=== PATIENT | male | born 1995 | race African-American/Black ===

== ENCOUNTER 2021-06-14 14:33 | Emergency (ER) | payer OTHER ==
[~2021-06-14] VITALS: Ht 170.2 cm; Wt 65.0 kg
[2021-06-14 14:39] VITALS: BP 162/100
[2021-06-14] MEDS ORDERED: IBUPROFEN 600 MG TABLET. PO ONE (15:30)
--- NOTE | 2021-06-14 15:51 | RAD ---
Exam Date: 06/14/2021 3:30 PM XR SHOULDER_RIGHT 2+ VIEWS Indication: Reason: SHOULDER PAIN / Spl. Instructions: / History: . FINDINGS/ IMPRESSION: No acute fracture or dislocation. Alignment and joint spaces are maintained. The soft tissues are w ithin normal limits. Electronically signed by: Bob Hardy MD (06/14/2021 3:48 PM) [id number]
--- NOTE | 2021-06-14 16:05 | PHYS DOC ---
Past History Past Medical History: No Pertinent History (LESLYE TUBBS APRN) Past Surgical History: No Surgical History (LESLYE TUBBS APRN) Smoking: Non-smoker Alcohol Use: None Drug Use: None (LESLYE TUBBS APRN) General Adult EDM: Chief Complaint: SHOULDER INJURY HPI: HPI: Patient is a 26-year-old male that presents today with right shoulder pain. Patient states that he has had pain over the last 3 days with no injury that he can recall, he states he was seen on post yesterday and was given an injection i nto the joint, and he says that has not helped with the pain he said he is now feeling pain into his hand and he came here for evaluation. Patient also states that he was given a prescription for muscle relaxers and [place]. Patient states he has not been taking any [id number] medications such as ibuprofen or Tylenol, he states he has not been icing or resting this arm. (LESLYE TUBBS APRN) Review of Systems: Review of Systems: Constitutional: Denies fever or chills Eyes: Denies change in visual acuity HENT: Denies nasal congestion or sore throat Respiratory: Denies cough or shortness of breath Cardiovascular: Denies chest pain or edema GI: Denies abdominal pain, nausea, vomiting, bloody stools or diarrhea : Denies dysuria Musculoskeletal: Right shoulder pain Integument: Denies rash Neurologic: Denies headache, focal weakness or sensory changes Endocrine: Denies polyuria or polydipsia Lymphatic: Denies swollen glands Psychiatric: Denies depression or anxiety (LESLYE TUBBS APRN) Current Medications: Current Meds: Current Medications Medications (Trade) Dose Ordered Sig/Ermias Start Time Stop Time Status Last Admin Dose Admin Ibuprofen (Motrin) 600 mg 1X ONCE 06/14/21 15:30 06/14/21 15:31 DC 06/14/21 15:36 600 MG (LESLYE TUBBS APRN) Allergies: Allergies: Allergies Coded Allergies Type Severity Reaction Last Updated Verified No Known Drug Allergies 06/14/21 No (LESLYE TUBBS APRN) Physical Exam: PE: Constitutional: Well developed, well nourished, no acute distress, non-toxic appearance. [] HENT: Normocephalic, atraumatic, bilateral external ears normal, oropharynx moist, no oral exudates, nose normal. [] Eyes: PERRLA, EOMI, conjunctiva normal, no discharge. [] Neck: Normal range of motion, no tenderness, supple, no stridor. [] Cardiovascular:Heart rate regular rhythm, no murmur [] Lungs & Thorax: Bilateral breath sounds clear to auscultation [] Abdomen: Bowel sounds normal, soft, no tenderness, no masses, no pulsatile masses. [] Skin: Warm, dry, no erythema, no rash. [] Back: No tenderness, no CVA tenderness. [] Extremities: Right shoulder tenderness noted along the deltoid and back of the shoulder area, patient has limited range of motion of the shoulder due to pain patient is only able to bring the arm up to about a 45 degree angle laterally, patient has no numbness or tingling in the hand distal to the pain, patient has full range of motion of his right elbow, radial pulses 2+. Neurologic: Alert and oriented X 3, normal motor function, normal sensory function, no focal deficits noted. [] Psychologic: Affect normal, judgement normal, mood normal. [] (LESLYE TUBBS APRN) Current Patient Data: Vital Signs: Vital Signs Date Time Temp Pulse Resp B/P (MAP) Pulse Ox O2 Delivery O2 Flow Rate FiO2 06/14/21 14:39 98.0 109 18 162/100 (120) 100 Room Air (LESLYE TUBBS APRN) EKG: EKG: [] (LESLYE TUBBS APRN) Radiology/Procedures: Radiology/Procedures: REASON: SHOULDER PAIN PROCEDURE: SHOULDER 2+V RIGHT Exam Date: 06/14/2021 3:30 PM XR SHOULDER_RIGHT 2+ VIEWS Indication: Reason: SHOULDER PAIN / Spl. Instructions: / History: . FINDINGS/ IMPRESSION: No acute fracture or dislocation. Alignment and joint spaces are maintained. The soft tissues are within normal limits. Electronically signed by: Bob Hardy MD (06/14/2021 3:48 PM) [id number][] (LESLYE TUBBS APRN) Heart Score: C/O Chest Pain: N/A Risk Factors: Risk Factors: DM, Current or recent (<one month) smoker, HTN, HLP, family history of CAD, obesity. Risk Scores: Score 0 - 3: 2.5% MACE over next 6 weeks - Discharge Home Score 4 - 6: 20.3% MACE over next 6 weeks - Admit for Clinical Observation Score 7 - 10: 72.7% MACE over next 6 weeks - Early Invasive Strategies (LESLYE TUBBS APRN) Course & Med Decision Making: Course & Med Decision Making Pertinent Labs and Imaging studies reviewed. (See chart for details) Reviewed radiological results with patient informed him there was no acute findings at this time, patient is informed that he will need to follow-up with his primary care physician for further management of his right shoulder pain, that he is to take [id number] ibuprofen as labeled directed for pain, ice 20 minutes on 3-4 times daily and get the muscle relaxants that was ordered for him previously filled so that he may take those for pain as well. Patient will be given a arm sling to use as needed to help with pain relief. Patient has a suspected rotator cuff injury and will need further evaluation by primary care. (LESLYE TUBBS APRN) Dragon Disclaimer: Dragon Disclaimer: This electronic medical record was generated, in whole or in part, using a voice recognition dictation system. (LESLYE TUBBS APRN) Attending Co-Sign The patient was seen and interviewed as well as examined at the bedside. The chart was reviewed. The case was discussed. Agree with the plan of care. (ELEANOR NESS DO) Departure Departure: Impression: Primary Impression: Shoulder pain, right Qualified Codes: M25.511 - Pain in right shoulder Disposition: HOME / SELF CARE / HOMELESS Condition: STABLE Referrals: SAMMY PRICE (PCP) MONSTER BOWMAN Jr. DO Patient Instructions: Shoulder Pain Additional Instructions: Use arm sling as needed to help with pain relief Ice 20 minutes on 3-4 times daily as needed for localized pain [id number] Tylenol or ibuprofen as needed for pain relief as labeled directed Follow-up with your primary care physician for further management of your right shoulder pain. LESLYE TUBBS APRN Jun 14, 2021 16:05 ELEANOR NESS DO Jun 15, 2021 13:54
== END 2021-06-14 16:30 | disposition home or self-care (01) ==
LOC: ER 14:33
DX: M25.511 Pain in right shoulder (principal)
CPT/HCPCS: 73030; 99283